=== PATIENT | male | born 1950 | race Caucasian/White ===

== ENCOUNTER 2019-11-29 16:46 | Emergency (ER) | payer MEDICARE, OTHER ==
[~2019-11-29] VITALS: Ht 172.7 cm; Wt 79.4 kg
[2019-11-29 18:09] LABS: BASOPHILS % 0.7 % (0.0-1.0); EOSINOPHILS # (AUTO) 0.2 (0.0-0.4); HEMATOCRIT 44.1 % (38.2-49.6); LYMPHOCYTES # (AUTO) 1.2 (1.0-3.2); LYMPHOCYTES % 21.5 % (18.0-39.1); MEAN CORPUSCULAR HEMOGLOBIN 29.9 pg (28-32); MEAN CORPUSCULAR HGB CONC 31.7 g/dL (31-35); MONOCYTES # (AUTO) 0.8 (0.2-0.8); MONOCYTES % 14.8 % (4.4-11.3); NEUTROPHILS # (AUTO) 3.3 (2.1-6.9); NEUTROPHILS % 58.8 % (38.7-80.0); PLATELET COUNT 228 x10e3/uL (140-360); RED BLOOD COUNT 4.69 x10e6/uL (4.3-5.7); RED CELL DISTRIBUTION WIDTH 14.3 % (11.7-14.4)
[2019-11-29 18:22] LABS: INR 0.89; PROTHROMBIN TIME 12.5 seconds (11.9-14.5)
[2019-11-29 18:23] LABS: PARTIAL THROMBOPLASTIN TIME 30.2 seconds (23.8-35.5)
[2019-11-29 18:31] LABS: ALANINE AMINOTRANSFERASE 22 IU/L (0-55); ALBUMIN 4.5 g/dL (3.5-5.0); ANION GAP 15.7 mmol/L (8-16); BLOOD UREA NITROGEN 20 mg/dL (7-26); BUN/CREATININE RATIO 18 (6-25); CALCIUM 9.8 mg/dL (8.4-10.2); CARBON DIOXIDE 25 mmol/L (22-29); CHLORIDE 107 mmol/L (98-107); CREATININE, SERUM 1.09 mg/dL (0.72-1.25); EST GLOMERULAR FILTRATION RATE > 60 ML/MIN (60-); GLUCOSE 201 mg/dL (74-118); POTASSIUM 3.7 mmol/L (3.5-5.1); SODIUM 144 mmol/L (136-145)
[2019-11-29 18:32] LABS: ALBUMIN/GLOBULIN RATIO 1.6 (0.8-2.0); ALKALINE PHOSPHATASE 55 IU/L (40-150)
--- NOTE | 2019-11-29 18:45 | NUR ---
DR. ALVES AT BEDSIDE FOR SERRANO IRRIGATION. PT TOLERATED WELL.
--- NOTE | 2019-11-29 19:16 | NUR ---
SERRANO BAG CHANGED. SERRANO INTACT. NAD NOTED.
--- NOTE | 2019-11-29 19:18 | Emergency Department Note ---
History of Present Illnes History of Present Illness Chief Complaint: Genitourinary History of Present Illness This is a 69 year old male 69 Y/O MALE PT AAOX3 PRESENTS TO THE ER C/O HEMATURIA & POSSIBLE SERRANO REPLACEMENT, ON PLAVIX/ASA; PT STATES HE IS URINATING AROUND CATHETER; PT STATES HE WAS SENT BY DR. ALVES TO BE ADMITTED TO HAVE BLADDER IRRIGATION; PT DENIES ANY PAIN AT THIS TIME; SKIN WARM, DRY AND COLOR WNL FOR PT; NAD NOTED AT THIS TIME; RESP EVEN/UNLABORED; 20G IV CATH PLACED IN LT AC; BLOOD OBTAINED FOR ANALYSIS; ERMD IN TRIAGE FOR INITIAL EVAL. Historian: Patient Arrival Mode: Car Sandwich Board Carrier Required: No Onset (how long ago): day(s) Location: HEMATURIA Radiation: Reports non-radiation Severity: moderate Onset quality: gradual Timing of current episode: constant Progression: unchanged Chronicity: recurrent Context: Denies recent illness Relieving factors: none Exacerbating factors: none Associated symptoms: Reports denies other symptoms Past Medical/Family History Physician Review I have reviewed the patient's past medical and family history. Any updates have been documented here. Past Medical History Recent Fever: No Clinical Suspicion of Infectio: No New/Unexplained Change in Ment: No Past Medical History: Hypertension, Diabetes, NC, Hypothyroidism, CAD, Hyperlipedemia Other Medical History: BPH Past Surgical History: Cataract Removal Other Surgery: TURP RT CARPAL TUNNEL SX CARDIAC STENTS X2 Social History Smoking Cessation: Never Smoker Counseling Performed: No Alcohol Use: None Any Illegal Drug Use: No TB Exposure/Symptoms: No Physically hurt or threatened: No Family History Family history of heart diseas: No Other Any Pre-Existing Lines (PICC,: No Review of Systems Review of Systems Constitutional: Reports no symptoms EENTM: Reports no symptoms Cardiovascular: Reports no symptoms Respiratory: Reports no symptoms Gastrointestinal: Reports no symptoms Genitourinary: Reports as per HPI, Reports hematuria Musculoskeletal: Reports no symptoms Integumentary: Reports no symptoms Neurological: Reports no symptoms Psychological: Reports no symptoms Endocrine: Reports no symptoms Hematological/Lymphatic: Reports no symptoms Physical Exam Related Data Allergies: Coded Allergies: Codeine (Verified Allergy, Mild, NAUSEA/VOMITING, 01/23/11) Triage Vital Signs Vital Signs Date Time Temp Pulse Resp B/P (MAP) Pulse Ox O2 Delivery O2 Flow Rate FiO2 11/29/19 17:11 99.3 89 18 136/80 98 Room Air Vital signs reviewed: Yes Physical Exam CONSTITUTIONAL Constitutional: Present well-developed, Present well-nourished HENT HENT: Present normocephalic, Present atraumatic, Present oropharynx clear/moist, Present nose normal HENT L/R: Present left ext ear normal, Present right ext ear normal EYES Eyes: Reports PERRL, Reports conjunctivae normal NECK Neck: Present ROM normal PULMONARY Pulmonary: Present effort normal, Present breath sounds normal CARDIOVASCULAR Cardiovascular: Present regular rhythm, Present heart sounds normal, Present capillary refill normal, Present normal rate GASTROINTESTINAL Abdominal: Present soft, Present nontender, Present bowel sounds normal GENITOURINARY Genitourinary: Present penis normal, Present other (SERRANO IN PLACE, REDDISH URINE IN BAG NO CLOTS) SKIN Skin: Present warm, Present dry MUSCULOSKELETAL Musculoskeletal: Present ROM normal NEUROLOGICAL Neurological: Present alert, Present oriented x 3, Present no gross motor or sensory deficits PSYCHOLOGICAL Psychological: Present mood/affect normal, Present judgement normal Results Laboratory Result Diagram: 11/29/19 1731 11/29/19 1731 Laboratory Laboratory Tests Test 11/29/19 17:31 White Blood Count 5.54 x10e3/uL (4.8-10.8) Red Blood Count 4.69 x10e6/uL (4.3-5.7) Hemoglobin 14.0 g/dL (14.0-18.0) Hematocrit 44.1 % (38.2-49.6) Mean Corpuscular Volume 94.0 fL (81-99) Mean Corpuscular Hemoglobin 29.9 pg (28-32) Mean Corpuscular Hemoglobin Concent 31.7 g/dL (31-35) Red Cell Distribution Width 14.3 % (11.7-14.4) Platelet Count 228 x10e3/uL (140-360) Neutrophils (%) (Auto) 58.8 % (38.7-80.0) Lymphocytes (%) (Auto) 21.5 % (18.0-39.1) Monocytes (%) (Auto) 14.8 % (4.4-11.3) Eosinophils (%) (Auto) 4.0 % (0.0-6.0) Basophils (%) (Auto) 0.7 % (0.0-1.0) Neutrophils # (Auto) 3.3 (2.1-6.9) Lymphocytes # (Auto) 1.2 (1.0-3.2) Monocytes # (Auto) 0.8 (0.2-0.8) Eosinophils # (Auto) 0.2 (0.0-0.4) Basophils # (Auto) 0.0 (0.0-0.1) Absolute Immature Granulocyte (auto 0.01 x10e3/uL (0-0.1) Prothrombin Time 12.5 seconds (11.9-14.5) Prothromb Time International Ratio 0.89 Activated Partial Thromboplast Time 30.2 seconds (23.8-35.5) Sodium Level 144 mmol/L (136-145) Potassium Level 3.7 mmol/L (3.5-5.1) Chloride Level 107 mmol/L (98-107) Carbon Dioxide Level 25 mmol/L (22-29) Anion Gap 15.7 mmol/L (8-16) Blood Urea Nitrogen 20 mg/dL (7-26) Creatinine 1.09 mg/dL (0.72-1.25) Estimat Glomerular Filtration Rate > 60 ML/MIN (60-) BUN/Creatinine Ratio 18 (6-25) Glucose Level 201 mg/dL (74-118) Calcium Level 9.8 mg/dL (8.4-10.2) Total Bilirubin 0.5 mg/dL (0.2-1.2) Aspartate Amino Transf (AST/SGOT) 24 IU/L (5-34) Alanine Aminotransferase (ALT/SGPT) 22 IU/L (0-55) Alkaline Phosphatase 55 IU/L (40-150) Total Protein 7.3 g/dL (6.5-8.1) Albumin 4.5 g/dL (3.5-5.0) Globulin 2.8 g/dL (2.3-3.5) Albumin/Globulin Ratio 1.6 (0.8-2.0) Lab results reviewed: Yes Assessment & Plan Medical Decision Making MDM HEMATURIA WITH SERRANO IN PLACE, ON PLAVIX/ASA - DR ALVES WANTS CBC, CHEM, PT/PTT, UA - EVAL FOR ANEMIA, RENAL INSUFF, COAGULOPATHY, UTI Reassessment Reassessment DR ALVES CAME, IRRIGATED SERRANO - NO CLOTS, SAYS PT CAN GO HOME, HAS ABX'S AT HOME, WILL F/U IN CLINIC Assessment & Plan Final Impression: (1) Hematuria Depart Disposition: HOME, SELF-CARE Last Vital Signs Date Time Temp Pulse Resp B/P (MAP) Pulse Ox O2 Delivery O2 Flow Rate FiO2 11/29/19 17:11 99.3 89 18 136/80 98 Room Air LEVI BENEDICT MD Nov 29, 2019 19:17
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
== END 2019-11-29 19:27 | disposition home or self-care (01) ==
LOC: ER 18:17
DX: R31.9 Hematuria, unspecified (principal); I10 Essential (primary) hypertension; E11.9 Type 2 diabetes mellitus without complications; E78.5 Hyperlipidemia, unspecified; I25.10 Atherosclerotic heart disease of native coronary artery without angina pectoris; I25.2 Old myocardial infarction
CPT/HCPCS: 36415; 80053; 85025; 85610; 85730; 99282

== ENCOUNTER 2019-12-10 10:15 | Observation (INO) | payer MEDICARE, OTHER ==
[2019-12-05 11:11] LABS: BASOPHILS % 0.6 % (0.0-1.0); EOSINOPHILS # (AUTO) 0.2 (0.0-0.4); EOSINOPHILS % 3.3 % (0.0-6.0); HEMATOCRIT 43.1 % (38.2-49.6); HEMOGLOBIN 13.8 g/dL (14.0-18.0); LYMPHOCYTES # (AUTO) 1.1 (1.0-3.2); LYMPHOCYTES % 15.9 % (18.0-39.1); MEAN CORPUSCULAR HEMOGLOBIN 29.7 pg (28-32); MEAN CORPUSCULAR VOLUME 92.9 fL (81-99); MONOCYTES # (AUTO) 1.1 (0.2-0.8); MONOCYTES % 16.6 % (4.4-11.3); NEUTROPHILS # (AUTO) 4.3 (2.1-6.9); PLATELET COUNT 218 x10e3/uL (140-360); RED BLOOD COUNT 4.64 x10e6/uL (4.3-5.7); RED CELL DISTRIBUTION WIDTH 14.8 % (11.7-14.4)
[2019-12-05 11:29] LABS: ALANINE AMINOTRANSFERASE 17 IU/L (0-55); ALBUMIN 4.5 g/dL (3.5-5.0); ALBUMIN/GLOBULIN RATIO 1.6 (0.8-2.0); ALKALINE PHOSPHATASE 44 IU/L (40-150); ANION GAP 15.2 mmol/L (8-16); BLOOD UREA NITROGEN 20 mg/dL (7-26); BUN/CREATININE RATIO 18 (6-25); CALCIUM 10.2 mg/dL (8.4-10.2); CARBON DIOXIDE 30 mmol/L (22-29); CHLORIDE 105 mmol/L (98-107); CREATININE, SERUM 1.12 mg/dL (0.72-1.25); EST GLOMERULAR FILTRATION RATE > 60 ML/MIN (60-); GLUCOSE 96 mg/dL (74-118); POTASSIUM 4.2 mmol/L (3.5-5.1); SODIUM 146 mmol/L (136-145)
--- NOTE | 2019-12-05 12:34 | Diagnostic Imaging Report ---
EXAMINATION: CHEST 2 VIEWS INDICATION: Preop for surgery. Benign prosthetic hypertrophy. ^PRE OP COMPARISON: None FINDINGS: TUBES and LINES: None. LUNGS: Lungs are well inflated. Lungs are clear. There is no evidence of pneumonia or pulmonary edema. PLEURA: No pleural effusion or pneumothorax. HEART AND MEDIASTINUM: The cardiomediastinal silhouette is unremarkable. BONES AND SOFT TISSUES: No acute osseous lesion. Soft tissues are unremarkable. UPPER ABDOMEN: No free air under the diaphragm. IMPRESSION: No acute thoracic abnormality. Signed by: Dr. Gaurav Headley M.D. on 12/05/2019 12:30 PM
[~2019-12-10] VITALS: Ht 172.7 cm; Wt 78.5 kg
[~2019-12-10 10:15] MED LIST: ASPIRIN81 MG PO; ATENOLOL25 MG PO; ATORVASTATIN CA20 MG PO; CLOPIDOGREL75 MG PO; DHEA50 MG PO; FARXIGA10 MG PO; FENOFIBRATE145 M1 PO; FLAX SEED OIL1000 MG PO; HUMALOG100 UNIT/1 SC; HUMIRA40 MG/0.8 SC; IMURAN50 MG PO; LISINOPRIL10 MG PO; MULTI-VITAMIN1 EACH PO; NIACIN100 MG PO; SYNTHROID125 MCG PO; TRESIBA100 UNIT/1 SC; VITAMIN B-121000 MCG PO; VITAMIN D3250 MC1 PO; ZETIA10 MG PO
[2019-12-10] MEDS ORDERED: SODIUM CHLORIDE 0.9% 1000ML 1,000 ML ONE (10:59)
[2019-12-10] MEDS ORDERED: CEFAZOLIN SOD 1 GM/NS 50ML 100 ML IV ONE (10:59)
[2019-12-10] MEDS ORDERED: IOPAMIDOL 300MG/ML 50ML INFUS..BTL IV ONE (11:38)
[2019-12-10] MEDS ORDERED: B&O 60MG R/S 60 MG SUPP PR ONE (11:38)
[2019-12-10] MEDS ORDERED: ONDANSETRON HCL INJ 2MG/ML 2ML 2 MG/ML VIAL ONE (12:40)
[2019-12-10] MEDS ORDERED: SEVOFLURANE INHAL SOLN 250 ML PEN BTL ONE (12:40)
[2019-12-10] MEDS ORDERED: LIDOCAINE HCL 2% LOCAL INJ 5 ML SDV VIAL INJ ONE (12:40)
[2019-12-10] MEDS ORDERED: DEXAMETHASONE SOD PHOS INJ 4 MG/ML VIAL ONE (12:40)
[2019-12-10] MEDS ORDERED: ROCURONIUM BROMIDE 10 MG/ML 5ML VIAL IV ONE (12:40)
[2019-12-10] MEDS ORDERED: PROPOFOL IV EMULSION 10 MG/ML 20 ML VIAL ONE (12:40)
[2019-12-10] MEDS ORDERED: FENTANYL CITRATE/PF 100MCG/2 ML INJ ONE (13:31)
[2019-12-10] MEDS ORDERED: MIDAZOLAM HCL 2 MG/2 ML VIAL ONE (13:31)
[2019-12-10 14:30] VITALS: BP 104/51
--- OUTSIDE RECORDS SUMMARY | 2019-12-10 16:27 | XMS REPORT | Continuity of Care Document ---
Author Author [facility] t Organization [facility] Address [address] [place] [address] Phone Unavailable Care Team Providers [employer] Operations Manager Name Role Phone TU GRIFFIN PCP Edd ALVES Attjustin Unavailable Payers Payer Name Policy Type Policy Number Effective Date Expiration Date S ochoa [employer] Medicare Replacement [id number] 2019 00:00:00 [facility] Problems Condition Name Condition Details Condition Category Status Onset Date Resolution Date Last Treatment Date Treating Clinician Comments Source Hematuria Problem Active [facility] Allergies, Adverse Reactions, Alerts Allergy Name Allergy Type Status Severity Reaction(s) Onset Date Inacti ve Date Treating Clinician Comments Source codeine DA Active [place] 2015-05-18 00:00:00 [facility] Codeine Allergy to substance Active Mild NAUSEA/VOMITING 2011-01-23 00:00:00 [facility] Social History Social Habit Start Date Stop Date Quantity Comments Source Sex Assigned At 1950 00:00:00 1950 00:[birth year]:00 Male [facility] Medications This patient has no known medications. Vital Signs Vital Name Observation Time Observation Value Comments Source Weight 2019-11-29 17:11:00 175 [lb_av] [facility] BMI (Body Mass Index) 2019-11-29 17:11:00 26.6 kg/m2 [facility] Procedures This patient has no known procedures. Plan of Care Planned Activity Planned Date Details Comments Source Instructions Corbett Catheter Care [facility] Encounters Start Date/Time End Date/Time Encounter Type Admission Type [facility] Care Department Encounter ID Source 2019-11-29 18:17:00 2019-11-29 19:27:00 Departed Emergency Room [facility] [id number] [facility] Results Test Description Test Time Test Comments Results Result Comments Source CHEST 2 VIEWS 2019-12-05 12:30:00 [facility] [address] [address] Patient Name: BELEM REINOSO MR #: [id number] : 1950 Age/Sex: 69/M Req #: [id number] Adm Physician: Ordered by: EVELYN ALVES MD Report #: [id number] Location: OR Room/Bed: Procedure: [id number] DX/CHEST 2 VIEWS Exam Date: Exam Time: REPORT STATUS: Signed EXAMINATION: CHEST 2 VIEWS INDICATION: Preop for surgery. Benign prosthetic hypertrophy. PRE OP COMPARISON: None FINDINGS: TUBES and LINES: None. LUNGS: Lungs are well inflated. Lungs are clear. There is no evidence of pneumonia or pulmonary edema. PLEURA: No pleural effusion or pneumothorax. HEART AND MEDIASTINUM: The cardiomediastinal silhouette is unremarkable. BONES AND SOFT TISSUES: No acute osseous lesion. Soft tissues are unremarkable. UPPER ABDOMEN: No free air under the diaphragm. IMPRESSION: No acute thoracic abnormality. Signed by: Dr. Gaurav Headley M.D. on 12/05/2019 12:30 PM Dictated By: GAURAV HEADLEY MD, MD 1230 Transcribed By: ABDIRIZAK on 12/05/19 1230 COPY TO: EVELYN ALVES MD Blood leukocytes automated count (number/volume) 2019-11-29 17:31:00 Test Item White Blood Count (test code = 6690-2) 5.54 4.8-10.8 [facility] count (number/volume)2019-11-29 17:31:00* Test Item Value Reference Range Interpretation Comments Red Blood Count (test code = 789-8) 4.69 4.3-5.7 [facility] hemoglobin measurement (moles/volume)2019-11-29 17:31:00* Test Item Value Reference Range Interpretation Comments Hemoglobin (test code = 43456-0) 14.0 14.0-18.0 [facility] blood hematocrit (volume fraction)2019-11-29 17:31:00* Test Item Value Reference Range Interpretation Comments Hematocrit (test code = 4544-3) 44.1 38.2-49.6 [facility] erythrocyte mean corpuscular [id number] 17:31:00* Test Item Value Reference Range Interpretation Comments Mean Corpuscular Volume (test code = 787-2) 94.0 81-99 [facility] erythrocyte mean corpuscular hemoglobin (mass per erythrocyte)2019-11-29 17:31:00* Test Item Value Reference Range Interpretation Comments Mean Corpuscular Hemoglobin (test code = 785-6) 29.9 28-32 [facility] erythrocyte mean corpuscular hemoglobin concentration measurement (mass/volume)2019-11-29 17:31:00* Test Item Value Reference Range Interpretation Comments Mean Corpuscular Hemoglobin Concent (test code = 786-4) 31.7 31-35 [facility] HospitalRDW [id number]-[id number] 17:31:00* Test Item Value Reference Range Interpretation Comments Red Cell Distribution Width (test code = 77480-2) 14.3 11.7 -14.4 [facility] blood platelet count (count/volume)2019-11-29 17:31:00* Test Item Value Reference Range Interpretation Comments Platelet Count (test code = 777-3) 228 140-360 [facility] blood segmented neutrophil count as percentage of total [id number] 17:31:00* Test Item Value Reference Range Interpretation Comments Neutrophils (%) (Auto) (test code = 04109-0) 58.8 38.7-80.0 [facility] HospitalAutom[facility] blood lymphocyte count as percentage ot total [id number] 17:31:00* Test Item Value Reference Range Interpretation Comments Lymphocytes (%) (Auto) (test code = 736-9) 21.5 18.0-39.1 [facility] HospitalAutom[facility] blood monocyte count as percentage of total [id number] 17:31:00* Test Item Value Reference Range Interpretation Comments Monocytes (%) (Auto) (test code = 5905-5) 14.8 4.4-11.3 [facility] HospitalAutom[facility] blood eosinophil count as percentage of total cbrthvsmwh9096-99-72 17:31:00* Test Item Value Reference Range Interpretation Comments Eosinophils (%) (Auto) (test code = 713-8) 4.0 0.0-6.0 [facility] HospitalAutom[facility] blood basophil count as percentage of total [id number] 17:31:00* Test Item Value Reference Range Interpretation Comments Basophils (%) (Auto) (test code = 706-2) 0.7 0.0-1.0 [facility] HospitalFluoroscopic procedure less than one hour [id number] 17:31:00* Test Item Value Reference Range Interpretation Comments IM GRANULOCYTES % (test code = IM GRANULOCYTES %) 0.2 0.0- 1.0 [facility] HospitalAutom[facility] blood neutrophil count 2019-11-29 17:31:00* Test Item Value Reference Range Interpretation Comments Neutrophils # (Auto) (test code = 751-8) 3.3 2.1-6.9 [facility] lymphocytes count (number/volume) 2019-11-29 17:31:00* Test Item Value Reference Range Interpretation Comments Lymphocytes # (Auto) (test code = 67302-0) 1.2 1.0-3.2 [facility]Blood monocytes automated count (number/volume)2019-11-29 17:31:00* Test Item Value Reference Range Interpretation Comments Monocytes # (Auto) (test code = 742-7) 0.8 0.2-0.8 [facility] HospitalAutomated blood eosinophil count 2019-11-29 17:31:00* Test Item Value Reference Range Interpretation Comments Eosinophils # (Auto) (test code = 711-2) 0.2 0.0-0.4 [facility] HospitalAutomated blood basophil count (count/volume)2019-11-29 17:31:00* Test Item Value Reference Range Interpretation Comments Basophils # (Auto) (test code = 704-7) 0.0 0.0-0.1 [facility] HospitalFluoroscopic procedure less than one hour [id number] 17:31:00* Test Item Value Reference Range Interpretation Comments Absolute Immature Granulocyte (auto (yesenia t code = Absolute Immature Granulocyte (auto) 0.01 0-0.1 [facility] HospitalProthrombin time (PT) in platelet poor plasma by coagulation pmind3231-96-22 17:31:00* Test Item Value Reference Range Interpretation Comments Prothrombin Time (test code = 5902-2) 12.5 11.9-14.5 [facility] HospitalINR in Platelet poor plasma by Coagulation [id number] 17:31:00* Test Item Value Reference Range Interpretation Comments Prothromb Time International Ratio (test code = 6301-6) 0.89 Oral Anticoagulant Therapy INR Values:1. Low Intensity Therapy 1.5 - 2.02 . Moderate Intensity Therapy 2.0 - 3.03. High Intensity Therapy(1) 2.5 - 3. 54. High Intensity Therapy(2) 3.0 - 4.05. Panic Value INR > 5.0 [facility] HospitalActivated partial thromboplastin time (aPTT) in platelet poor plasma by coagulation xvuyt2597-09-73 17:31:00* Test Item Value Reference Range Interpretation Comments Activated Partial Thromboplast Time (test code = 14949-4) 30.2 23.8-35.5 [facility] sodium measurement (moles/volume)2019-11-29 17:31:00* Test Item Value Reference Range Interpretation Comments Sodium Level (test code = 2951-2) 144 136-145 [facility] Hospital[facility] or plasma potassium measurement (moles/volume)2019-11-29 17:31:00* Test Item Value Reference Range Interpretation Comments Potassium Level (test code = 2823-3) 3.7 3.5-5.1 [facility] or plasma chloride measurement (moles/volume)2019-11-29 17:31:00* Test Item Value Reference Range Interpretation Comments Chloride Level (test code = 2075-0) 107 98-107 [facility]um or plasma carbon dioxide, total measurement (moles/volume)2019-11-29 17:31:00* Test Item Value Reference Range Interpretation Comments Carbon Dioxide Level (test code = 2028-9) 25 22-29 [facility] Hospitalerum or plasma anion ydq0266-24-86 17:31:00* Test Item Value Reference Range Interpretation Comments Anion Gap (test code = 79296-1) 15.7 8-16 [facility]erum or plasma urea nitrogen measurement (mass/volume)2019-11-29 17:31:00* Test Item Value Reference Range Interpretation Comments Blood Urea Nitrogen (test code = 3094-0) 20 7-26 [facility]erum or plasma creatinine measurement (mass/volume)2019-11-29 17:31:00* Test Item Value Reference Range Interpretation Comments Creatinine (test code = 2160-0) 1.09 0.72-1.25 [facility]erum or plasma urea nitrogen/creatinine mass neggx1804-26-24 17:31:00* Test Item Value Reference Range Interpretation Comments BUN/Creatinine Ratio (test code = 3097-3) 18 6-25 [facility] HospitalEstimated glomerular filtration rate (GFR) nmhqvjnslywlm8980-90-94 17:31:00* Test Item Value Reference Range Interpretation Comments Estimat Glomerular Filtration Rate (test code = 624049772) > 60 >60 Ranges were taken from the National Kidney Disease Education Program and the [facility] Foundation literature.Reference ranges:60 or greater: Nsneql20-60 ( for 3 consecutive months): Chronic kidney disease 15 or less: Kidney failureHouston Methodist West HospitalGlucose jlnfvvvchhw8900-18-10 17:31:00* Test Item Value Reference Range Interpretation Comments Glucose Level (test code = WHM4420) 201 74-118 [facility] Hospitalerum or plasma calcium measurement (mass/volume)2019-11-29 17:31:00* Test Item Value Reference Range Interpretation Comments Calcium Level (test code = 10066-2) 9.8 8.4-10.2 [facility] Hospitalerum or plasma total bilirubin measurement (mass/volume)2019-11-29 17:31:00* Test Item Value Reference Range Interpretation Comments Total Bilirubin (test code = 1975-2) 0.5 0.2-1.2 [facility] HospitalFluoroscopic procedure less than one hour mfyofnxi7560-26-90 17:31:00* Test Item Value Reference Range Interpretation Comments Aspartate Amino Transf (AST/SGOT) (test code = Aspartate Amino Transf (AST/SGOT)) 24 5-34 [facility] Hospitalerum or plasma alanine aminotransferase measurement (enzymatic activity/volume)2019-11-29 17:31:00* Test Item Value Reference Range Interpretation Comments Alanine Aminotransferase (ALT/SGPT) (test code = 1742-6) 22 0-55 [facility] Hospitalerum or plasma protein measurement (mass/volume)2019-11-29 17:31:00* Test Item Value Reference Range Interpretation Comments Total Protein (test code = 2885-2) 7.3 6.5-8.1 [facility] Hospitalerum or plasma albumin measurement (mass/volume)2019-11-29 17:31:00* Test Item Value Reference Range Interpretation Comments Albumin (test code = 1751-7) 4.5 3.5-5.[address] [facility]Pl[facility] globulin measurement (mass/volume) 2019-11-29 17:31:00* Test Item Value Reference Range Interpretation Comments Globulin (test code = 64605-7) 2.8 2.3-3.5 [facility] Hospitalerum or plasma albumin/globulin mass aolhy6452-89-73 17:31:00* Test Item Value Reference Range Interpretation Comments Albumin/Globulin Ratio (test code = 1759-0) 1.6 0.8-2.0 [facility] Hospitalerum or plasma alkaline phosphatase measurement (enzymatic activity/volume)2019-11-29 17:31:00* Test Item Value Reference Range Interpretation Comments Alkaline Phosphatase (test code = 6768-6) 55 40-150 [facility]
[2019-12-10 16:30] VITALS: BP 104/51
--- NOTE | 2019-12-10 16:30 | NUR ---
PHONE REPORT RECEIVED FROM PACU NURSE. PATIENT RECEIVED LYING IN BED IN NO ACUTE DISTRESS. PATIENT IS AAOX4 AND ABLE TO MAKE NEEDS KNOWN. PATIENT WAS EDUCATED ON FALL RISK PRECAUTIONS AND VERBALIZED UNDERSTANDING. PATIENT ORIENTED TO UNIT AND FLOOR USING ADMIT CHECKLIST. CALL LIGHT AND BELONGINGS PLACED NEARBY. I WILL CONTINUE TO MONITOR.
--- NOTE | 2019-12-10 16:55 | NUR ---
WRITTEN ORDERS RECEIVED FROM DR. ALVES FOR TYLENOL #4, WHICH WAS NOT AVAILABLE PER PHARMACY. ORDERS RECEIVED FOR ACETAMINOPHEN 650 MG Q 4HRS PRN FOR MODERATE PAIN 4-6 ON NUMERIC PAIN SCALE. Addendum: 12/10/19 at 1949 by Bertha Posey RN ORDERS RECEIVED VIA PHONE CALL FROM DR. GARCIA. FELDMAN TO ROUND IN AM
[2019-12-10 18:25] VITALS: BP 104/51
[2019-12-10] MEDS ORDERED: ACETAMINOPHEN/CODEINE 300MG - 30MG TAB PO PRN (19:00)
[2019-12-10] MEDS ORDERED: B&O 60MG R/S 60 MG SUPP PR PRN (19:00)
--- NOTE | 2019-12-10 19:00 | NUR ---
SBAR BEDSIDE REPORT GIVEN TO ONCOMING NURSE. PATIENT AAOX4 AND STABLE.
--- NOTE | 2019-12-10 19:15 | NUR ---
WALKING ROUNDS PERFORMED, RECEIVED PT LAYING SEMI FOWLERS IN BED, AAOX3, RR EVEN AND NON-LABORED, ON ROOM AIR. NO S/SX OF DISTRESS NOTED. LEFT PT LAYING SEMI FOWLERS IN BED, BED IN LOW LOCKED POSITION, SIDE RAILS UPX2, CALL LIGHT AND PHONE WITHIN REACH.
[2019-12-10] MEDS ORDERED: ACETAMINOPHEN 325 MG TAB PO PRN (19:45)
[2019-12-10 19:53] VITALS: BP 113/58
[2019-12-10] MEDS: LACTATED RINGER'S 1,000 ML INJ SCH (19:59)
[2019-12-10 21:00] VITALS: BP 113/58
[2019-12-10] MEDS ORDERED: EZETIMIBE 10 MG TAB PO SCH (21:00)
[2019-12-10] MEDS ORDERED: FENOFIBRATE 145 MG TAB PO SCH (21:00)
[2019-12-10] MEDS ORDERED: ATORVASTATIN 40 MG TAB PO SCH (21:00)
[2019-12-10] MEDS: CEFAZOLIN SOD 1 GM/NS 50ML 50 ML IV SCH (21:40)
[2019-12-10] MEDS ORDERED: CEFAZOLIN SOD 1 GM VIAL IV SCH (22:00)
[2019-12-11] VITALS: BP 112/64
[2019-12-11 04:00] VITALS: BP 109/60
[2019-12-11] MEDS: LACTATED RINGER'S 1,000 ML INJ SCH (04:21)
[2019-12-11] MEDS: CEFAZOLIN SOD 1 GM/NS 50ML 50 ML IV SCH (05:56)
[2019-12-11] MEDS ORDERED: LEVOTHYROXINE SODIUM 125 MCG TAB PO SCH (06:00)
--- NOTE | 2019-12-11 06:47 | NUR ---
pt with baline color urine no pain minimal bladder spasm no periurethral bleeding tolerated diet and testicles not swollen plan is for the pt to go home melinda will see sunday to remove cath
[2019-12-11 08:13] VITALS: BP 108/61
--- NOTE | 2019-12-11 08:17 | NUR ---
EDUCATED ABOUT OSORIO, SIGNED, FILED IN CHART, WITH COPY LEFT WITH FAMILY AT BEDSIDE.
[2019-12-11] MEDS ORDERED: AZATHIOPRINE 50 MG TAB PO SCH (09:00)
[2019-12-11] MEDS ORDERED: LISINOPRIL 20 MG TAB PO SCH (09:00)
[2019-12-11] MEDS ORDERED: ATENOLOL 50 MG TAB PO SCH (09:00)
[2019-12-11 09:31] VITALS: BP 108/61
--- NOTE | 2019-12-11 09:45 | NUR ---
Discharge education provided along with Leg bag for reddy catheter education. Received return demonstration from patient . Verbalized understanding. Discharge packet given with the night drainage bag. Awaiting for pick- up.
--- NOTE | 2019-12-11 10:41 | Operative Report ---
DATE OF PROCEDURE: 12/10/2019 SURGEON: Breezy Bunn MD PREOPERATIVE DIAGNOSIS: Urinary retention, clot retention, benign prostatic hypertrophy. OPERATION PERFORMED: Cystoscopy and transurethral resection of prostate. ANESTHESIOLOGIST: Staff. ANESTHESIA: General. PROCEDURE DONE: Urethral dilatation with cystoscopy and transurethral resection of the prostate. 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 On cystoscopy, urethra was normal. The prostate had regrowth, was causing obstruction and grade 1-2 trabeculation of the bladder. Ureteral orifice normal shape. Severe regrowth of the prostate was seen with tissue necrosis identified. DESCRIPTION OF PROCEDURE: With the patient under satisfactory general anesthesia, the patient was placed in supine position on the operating table. Legs were placed on stirrups. Genitalia was then prepped with Betadine soap and solution and draped in usual manner. Dilatation was done with Narendra sounds sequentially from size 18 to size 28. After this was done, the continuous-flow Olympus resectoscope was placed in without any difficulty and findings as dictated above. At this point, using the bipolar electrode, resection of the prostate was done using the loop electrode. Once that was done with the necrotic tissue and flagellations, then I placed in the plasma button and continued then to operate the prostate until I ran into normal tissue. At this point, all of the bleeders were electrocoagulated. The iliac evacuator was used then to remove the prostatic chips from the bladder. Again, I inspected the bladder. The trigone was intact so were the ureteral orifice. There was no active bleeding identified. So, at this point, I removed the instruments and placed a #22, 30 mL balloon catheter into the bladder. Bladder was irrigated till the return was clear. The patient had a B and O suppository placed in the rectum and then he was taken to recovery room in satisfactory condition. DISCHARGE INSTRUCTIONS: The patient was kept overnight for observation. I discussed with the the finding of surgery. If the patient is well, remains with normal vital signs, tolerates diet, does not have a fever and does not have any clot retention, then the patient will send home the next morning with a Corbett catheter leg bag, overnight bag and Keflex antibiotic with Tylenol for pain. He was also instructed that he can return to my office to strip picker some samples of Myrbetriq that he will take in the morning until the catheter will be removed. If the patient needed to stay an extra night, then a separate dictation will be made to explain the reason why he stayed an extra night. MD KLEBER Perrin/MODL /[id number]
[2019-12-11] MEDS ORDERED: INSULIN LISPRO 100 UNIT/1 ML 3ML VIAL SQ SCH (16:30)
== END 2019-12-11 10:28 | disposition home or self-care (01) ==
LOC: OR 10:15 → PACU V 12:35 → INTOOBSV 12:35 → MED/SURG 16:56
PROVIDERS: ADMIT Urology; ATTEND Urology
DX: N40.1 Benign prostatic hyperplasia with lower urinary tract symptoms (principal); R33.8 Other retention of urine; N13.8 Other obstructive and reflux uropathy; R31.0 Gross hematuria; N20.0 Calculus of kidney; I25.2 Old myocardial infarction; E05.90 Thyrotoxicosis, unspecified without thyrotoxic crisis or storm; E78.00 Pure hypercholesterolemia, unspecified; Z88.5 Allergy status to narcotic agent; E11.9 Type 2 diabetes mellitus without complications; E03.9 Hypothyroidism, unspecified; I25.10 Atherosclerotic heart disease of native coronary artery without angina pectoris; Z79.4 Long term (current) use of insulin; I11.9 Hypertensive heart disease without heart failure
CPT/HCPCS: 36415 ×2; 52630; 71046; 80053; 82948; 85025; 87086; 88305; 93005; G0378 ×2; J0690 ×2; J1100; J2001; J2250; J2405; J2704; J3010; J7030; J7121; J7500; U0002; 88342